=== PATIENT | female | born 1990 | race Hispanic/Latino ===

== ENCOUNTER 2019-06-17 04:53 | Emergency (ER) | payer SELFPAY ==
[2019-06-17 04:59] VITALS: BP 126/82
--- NOTE | 2019-06-17 07:24 | Emergency Department Report ---
Abscess Boil HPI - HPI Duration: 5 Days Location: Upper Extremity Severity: Moderate History: Yes Pain, No Fever, No Purulent Drainage, No Numbness, No Foreign Body, No Previous History, No Insect Bite HPI: This is a 29-year-old female who presents to the emergency room with the student left lateral forearm. Patient states she injected IV drugs a couple of days ago and noticed swelling shortly after. She haven't tried to improve symptoms. Reports swelling to left wrist with pain radiating to hand. <POPPY KHANA ASAF - Last Filed: 06/17/19 09:37> <RYAN CANNON - Last Filed: 06/17/19 10:35> - HPI Chief Complaint: Skin/Abscess/Foreign Body Stated Complaint: BOIL Time Seen by Provider: 06/17/19 07:13 Home Medications: Previous Rx's Medication Instructions Recorded Last Taken Type Acetaminophen/Codeine [Tylenol #3] 1 tab PO Q6H PRN #20 tab 12/13/15 Unknown Rx Ibuprofen [Motrin 800 MG tab] 800 mg PO Q8HR PRN #30 tablet 12/13/15 Unknown Rx Allergies/Adverse Reactions: Allergies Allergy/AdvReac Type Severity Reaction Status Date / Time No Known Allergies Allergy Unverified 12/13/15 16:09 ED Review of Systems ROS: Stated complaint: BOIL Other details as noted in HPI Constitutional: denies: chills, fever Respiratory: denies: cough, shortness of breath, wheezing Cardiovascular: denies: chest pain, palpitations Gastrointestinal: denies: abdominal pain, nausea, diarrhea Skin: lesions (abscess to left wrist). denies: rash Neurological: denies: headache, weakness, paresthesias Psychiatric: denies: anxiety, depression <POPPY KHANA ASAF - Last Filed: 06/17/19 09:37> ROS: Stated complaint: BOIL Other details as noted in HPI <RYAN CANNON - Last Filed: 06/17/19 10:35> ED Past Medical Hx - Past Medical History Previous Medical History?: No - Surgical History Past Surgical History?: Yes Additional Surgical History: OVARIAN CYST - Social History Smoking Status: Current Every Day Smoker Substance Use Type: Alcohol, Methamphetamines <WISAM KHANMIS BATISTAGEM - Last Filed: 06/17/19 09:37> <RYAN CANNON M - Last Filed: 06/17/19 10:35> - Medications Home Medications: Home Medications Medication Instructions Recorded Confirmed Last Taken Type Acetaminophen/Codeine [Tylenol #3] 1 tab PO Q6H PRN #20 tab 12/13/15 Unknown Rx Ibuprofen [Motrin 800 MG tab] 800 mg PO Q8HR PRN #30 tablet 12/13/15 Unknown Rx ED Abscess Boil Physical Exam - Exam General: Vital signs noted. No distress. Alert and acting appropriately. Front/Back of Body, Lg (Color): 1 - 3 cm erythematous fluctuant nodule to distal radius, tenderness Size: 3 cm Exam: Yes Tenderness, Yes Fluctuance, Yes Surrounding Cellulites/Erythema, Yes Normal Neurologic Exam, Yes Normal Circulation, No Lymphangitis, No Crepitation, No Heart Murmur <DA KHAN - Last Filed: 06/17/19 09:37> - Exam General: Vital signs noted. No distress. Alert and acting appropriately. <RYAN CANNON M - Last Filed: 06/17/19 10:35> ED Course Vital Signs 06/17/19 04:57 Temperature 98.4 F Pulse Rate 128 H Respiratory 18 Rate Blood Pressure 126/82 O2 Sat by Pulse 100 Oximetry <DA KHAN - Last Filed: 06/17/19 09:37> Vital Signs 06/17/19 04:57 Temperature 98.4 F Pulse Rate 128 H Respiratory 18 Rate Blood Pressure 126/82 O2 Sat by Pulse 100 Oximetry - Reevaluation(s) Reevaluation #1: Patient was advised that an I&D was necessary as well as admission for intr avenous antibiotics. I see that she apparently left without treatment. 06/17/19 10:34 <RYAN CANNON M - Last Filed: 06/17/19 10:35> Critical care attestation.: If time is entered above; I have spent that time in minutes in the direct care of this critically ill patient, excluding procedure time. <DA KHAN - Last Filed: 06/17/19 09:37> Critical care attestation.: If time is entered above; I have spent that time in minutes in the direct care of this critically ill patient, excluding procedure time. <DAVISRYAN CORRAL Royal - Last Filed: 06/17/19 10:35> ED Medical Decision Making - Lab Data Result diagrams: 06/17/19 07:41 06/17/19 07:41 Lab Results 06/17/19 06/17/19 Range/Units 07:41 07:41 WBC 25.6 H (4.5-11.0) K/mm3 RBC 4.03 (3.65-5.03) M/mm3 Hgb 12.5 (10.1-14.3) gm/dl Hct 36.0 (30.3-42.9) % MCV 89 (79-97) fl MCH 31 (28-32) pg MCHC 35 H (30-34) % RDW 13.3 (13.2-15.2) % Plt Count 264 (140-440) K/mm3 Sodium 136 L (137-145) mmol/L Potassium 3.6 (3.6-5.0) mmol/L Chloride 99.4 (98-107) mmol/L Carbon Dioxide 24 (22-30) mmol/L Anion Gap 16 mmol/L BUN 9 (7-17) mg/dL Creatinine 0.5 L (0.7-1.2) mg/dL Estimated GFR > 60 ml/min BUN/Creatinine Ratio 18 % Glucose 109 H (65-100) mg/dL Calcium 9.0 (8.4-10.2) mg/dL - EKG Data -: No EKG Interpreted by Me (EKG interpreted by attending) Rate: tachycardia - Radiology Data Radiology results: report reviewed LEFT FOREARM 2 VIEWS. INDICATION / CLINICAL INFORMATION: abscess distal lateral, r/o osteomyelitis COMPARISON: None available. FINDINGS: BONES / JOINT(S): No acute fracture or subluxation. No significant arthritis or bony destruction. SOFT TISSUES: Localized soft tissue swelling adjacent to the distal radius. Negative for radiopaque foreign body. ADDITIONAL FINDINGS: None. CHEST 1 VIEW 06/17/2019 8:52 AM INDICATION / CLINICAL INFORMATION: possible Sepsis. COMPARISON: None available. FINDINGS: SUPPORT DEVICES: None. HEART / MEDIASTINUM: No significant abnormality. LUNGS / PLEURA: No significant pulmonary or pleural abnormality. No pneumothorax. ADDITIONAL FINDINGS: No significant additional findings. IMPRESSION: 1. No acute findings. - Medical Decision Making Patient was examined by me. Tachycardic on arrival. Patient is lethargic and was stimulated for focal exam. There is a 3 cm abscess to the left distal radius. Patient is a active IV drug user. Initially a x-ray of left forearm and labs were obtained. Consulted attending for possible admission. White count 24,000. A sepsis was called with further workup. Attending Dr. Cannon advised to give vancomycin and meropenem antibiotics. Patient refused an IV. Nursing staff informed me patient eloped leaving personal items in room. <DA KHAN - Last Filed: 06/17/19 09:37> - Lab Data Result diagrams: 06/17/19 07:41 06/17/19 07:41 <RYAN CANNON - Last Filed: 06/17/19 10:35> ED Disposition Is pt being admited?: No <DA KHAN - Last Filed: 06/17/19 09:37> Is pt being admited?: No Does the pt Need Aspirin: No Time of Disposition: 10:35 <RYAN CANNON - Last Filed: 06/17/19 10:35> Clinical Impression: Left against medical advice Disposition: Z-07 ELOPED Condition: Stable Referrals: WEN GILBERT MD [Primary Care Provider] - 3-5 Days
[2019-06-17 07:52] LABS: Hemoglobin 12.5 gm/dl (10.1-14.3); Mean Corpuscular HGB Conc 35 % (30-34); Mean Corpuscular Volume 89 fl (79-97); Platelet Count 264 K/mm3 (140-440); Red Blood Count 4.03 M/mm3 (3.65-5.03); Red Cell Distribution Width 13.3 % (13.2-15.2)
[2019-06-17 08:13] LABS: BUN/Creatinine Ratio 18; Blood Urea Nitrogen 9 mg/dL (7-17); Hemolysis Index 15
--- NOTE | 2019-06-17 08:15 | XRay Report ---
LEFT FOREARM 2 VIEWS. INDICATION / CLINICAL INFORMATION: abscess distal lateral, r/o osteomyelitis COMPARISON: None available. FINDINGS: BONES / JOINT(S): No acute fracture or subluxation. No significant arthritis or bony destruction. SOFT TISSUES: Localized soft tissue swelling adjacent to the distal radius. Negative for radiopaque f oreign body. ADDITIONAL FINDINGS: None. Signer Name: Teodoro Byers MD Signed: 06/17/2019 8:10 AM Workstation Name: [id number]
[2019-06-17] MEDS ORDERED: NACL 0.9% 500 ML 500 ML IV ONE (08:21)
--- NOTE | 2019-06-17 09:16 | XRay Report ---
CHEST 1 VIEW 06/17/2019 8:52 AM INDICATION / CLINICAL INFORMATION: possible Sepsis. COMPARISON: None available. FINDINGS: SUPPORT DEVICES: None. HEART / MEDIASTINUM: No significant abnormality. LUNGS / PLEURA: No significant pulmonary or pleural abnormality. No pneumothorax. ADDITIONAL FINDINGS: No significant additional findings. IMPRESSION: 1. No acute findings. Signer Name: Delta Landry MD Signed: 06/17/2019 9:12 AM Workstation Name: [id number]
[2019-06-17] MEDS ORDERED: VANCOMYCIN/NS 1 GM/250 ML 1 GM/250 ML BAG IV ONE (09:30)
[2019-06-17] MEDS ORDERED: MERREM 1,000 MG in NACL 0.9% 100 ML IV ONE (09:30)
== END 2019-06-17 09:10 | disposition left against medical advice (07) ==
LOC: ED 04:53 → EEVIPCON 04:53 → ED 09:10
DX: L02.414 Cutaneous abscess of left upper limb (principal); F17.200 Nicotine dependence, unspecified, uncomplicated; Z79.1 Long term (current) use of non-steroidal anti-inflammatories (NSAID)
CPT/HCPCS: 36415; 71045; 80048; 85027; 93005; 93010; 99283; J2185